=== PATIENT | male | born 1990 | race Two or more races ===

== ENCOUNTER 2021-06-08 21:57 | Emergency (ER) | payer SELFPAY ==
[~2021-06-08] VITALS: Ht 180.3 cm; Wt 138.8 kg
[2021-06-08 22:42] VITALS: BP 112/68
[2021-06-09] MEDS ORDERED: cefTRIAXone SOD 1,000 MG VL IM ONE (02:00)
[2021-06-09] MEDS ORDERED: DexAMETHasone SOD PHOS 10MG/1ML VIAL INJ IM ONE (02:00)
[2021-06-09] MEDS ORDERED: cefTRIAXone W LIDOCAINE 1 GM IM IM ONE (02:00)
== END 2021-06-09 02:27 | disposition home or self-care (01) ==
LOC: ER 22:00
DX: J18.9 Pneumonia, unspecified organism (principal); Z20.822 Contact with and (suspected) exposure to COVID-19
CPT/HCPCS: 36415; 71045; 87426; 93005; 96372; 99285; J0696; J1100

== ENCOUNTER 2025-04-05 21:47 | Emergency (ER) | payer OTHER ==
[~2025-04-05] VITALS: Ht 182.9 cm; Wt 139.5 kg
[2025-04-05 23:30] VITALS: BP 145/103; PULSE 79; RESP 19; TEMP 98.6; O2SAT 98
[2025-04-05] MEDS ORDERED: CEFD300C2 PO (23:31)
[2025-04-05] MEDS ORDERED: METH4PAK PO (23:31)
--- NOTE | 2025-04-05 23:31 | ED.PDOC ---
Eye-HPI HPI Comments 34-year-old female presents to the ED chief complaint left ear pain. Patient states flu-like symptoms x1 week then noted improvement over the past day and then started with monitor left ear pain. Patient states decrease in hearing on the left side. He does note intermittent fever and chills reports no nausea, vomiting, dizziness, chest pain, shortness of breath, or headaches. Chief Complaint: Earache Time Seen by MD: 22:01 Reviewed Notes: Nurses Notes, Medications, Allergies Allergies: Coded Allergies: NO KNOWN ALLERGIES (Unverified , 06/08/21) Home Meds Active Scripts Methylprednisolone (Medrol Dosepak) 4 Mg Jaime, 4 MG PO UD for 6 Days, #21 TAB UAD Prov:DEVANGGIO [employer] 04/05/25 Cefdinir (Cefdinir) 300 Mg Cap, 1 CAP PO BID for 7 Days, #14 CAP Prov:DEVANGGIO [employer] 04/05/25 Information Source: Patient Mode of Arrival: Ambulatory Past Medical History PAST MEDICAL HISTORY: Denies Surgical History: Denies all surgeries Social History Smoker: Non-Smoker Alcohol: Denies ETOH Use Drugs: Denies Drug Use All Other Systems: Reviewed and Negative (See HPI) Physical Exam General Appearance: No Apparent Distress, Normal HEENT: Pharynx Normal, TM Abnormal (L) (Erythemic, bulging intact without drainage canal clear), TM Abnormal (R) (Normal) Neck: Full Range of Motion, Non-Tender Respiratory: Lungs Clear, No Respiratory Distress, Normal Breath Sounds Cardiovascular: No Edema, No JVD, No Murmur, No Gallop, Normal Peripheral Pulses, Regular Rate/Rhythm Breast Exam: Deferred Gastrointestinal: Non Tender, Soft Genitalia: Deferred Pelvic: Deferred Rectal: Deferred Extremities: Normal range of motion, No pedal edema Musculoskeletal : Apperance: Normal Neurologic: Alert, No Motor Deficits, Normal Affect, Normal Mood, No Sensory Deficits Cerebellar Function: Normal Reflexes: NOT DONE Skin: Dry, Normal Color, Warm Lymphatic: No Adenopathy Was a procedure done? Was a procedure done?: No EENT DIFF Eye: N/A Ear: Abrasion, Cerumen Impaction, Foreign Body, Otitis Externa, Barotrauma, Otitis Media, Perforation, Dental, Pharyngitis X-Ray, Labs, Meds, VS Vital Signs Date Time Temp Pulse Resp B/P (MAP) Pulse Ox O2 Delivery O2 Flow Rate FiO2 04/05/25 23:30 98.6 79 19 145/103 (117) 98 98.6 04/05/25 23:30 79 19 98 Room Air 04/05/25 21:48 98.5 88 20 140/102 96 98.5 X-Ray, Labs, Meds, VS Comment Likely infected. Script trial of antibiotics and steroid. Advised to take medication as prescribed side effects discussed. Advised to rest increase p.o. fluids with electrolytes. Avoid under water activities while with infection. Follow up with your PCP in three days if no improvement. ER return precautions given patient indicates understanding and agrees with discharge plan of care. Time of 1ST Reevaluation: 22:35 Reevaluation 1ST: Unchanged Time of 2ND Reevaluation: 23:20 Reevaluation 2ND: Improved Patient Education/Counseling: Diagnosis, Treatment, Need For Follow Up Family Education/Counseling: No Family Present SEPSIS Sepsis Screen Date sepsis recognized/suspect: Apr 05, 2025 Time Sepsis recognized/suspect: 2150 Recent Procedure: No On Antibiotic Therapy: No Respiratory Rate >20: No Heart Rate >90: No Temp<36 C (96.8 F) or >38.3 C: No SBP <90 or MAP <65 mmHG: No New Acute Mental Status Change: No Is the patient on CPAP, BIPAP,: No Vital Signs Date Time Temp Pulse Resp B/P (MAP) Pulse Ox O2 Delivery O2 Flow Rate FiO2 04/05/25 23:30 98.6 79 19 145/103 (117) 98 98.6 04/05/25 23:30 79 19 98 Room Air 04/05/25 21:48 98.5 88 20 140/102 96 98.5 Departure 1 Departure Time of Disposition: 23:30 Impression: Primary Impression: Otitis media Qualified Codes: H66.92 - Otitis media, unspecified, left ear Disposition: HOME / SELF CARE / HOMELESS Condition: Stable e-Prescriptions Methylprednisolone (Medrol Dosepak) 4 Mg Jaime 4 MG PO UD for 6 Days, #21 TAB UAD Prov: GIO SIDDIQI [employer] 04/05/25 Cefdinir (Cefdinir) 300 Mg Cap 1 CAP PO BID for 7 Days, #14 CAP Prov: GIO SIDDIQI [employer] 04/05/25 Discharged With: Self Critical Care Note Critical Care Time?: No Stability Stability form required: GIO Melton Apr 05, 2025 23:31
== END 2025-04-05 23:40 | disposition home or self-care (01) ==
LOC: ER 21:47
DX: H66.92 Otitis media, unspecified, left ear (principal); Z79.899 Other long term (current) drug therapy